=== PATIENT | male | born 1995 | race Caucasian/White ===

== ENCOUNTER 2021-03-17 01:46 | Emergency (ER) | payer OTHER ==
[~2021-03-17] VITALS: Ht 177.8 cm; Wt 88.1 kg
[2021-03-17] MEDS ORDERED: KETOROLAC 30 MG/1 ML ONE (02:04)
[2021-03-17] MEDS ORDERED: MORPHINE SULFATE 4 MG/ML, 1ML ONE ×2 (02:04→03:43)
[2021-03-17] MEDS ORDERED: ONDANSETRON 2MG/ML, 2ML ONE (02:04)
--- NOTE | 2021-03-17 02:24 | NUR ---
pt presents to ed with left lower quad abd pain. pt states he woke up with intense pain. pt says he is also having trouble urinating. pt in gown, on gurney and placed on continuous monitoring. pt was vomitting. pt has 20 g IV placed to left AC, medication given and ivf started.
[2021-03-17] MEDS ORDERED: MORPHINE SULFATE 4 MG/ML, 1ML IVPush PRN (02:30)
[2021-03-17] MEDS ORDERED: ONDANSETRON 2MG/ML, 2ML IVPush ONE (02:30)
[2021-03-17] MEDS ORDERED: KETOROLAC 30 MG/1 ML IVPush ONE (02:30)
--- NOTE | 2021-03-17 02:36 | NUR ---
pt states pain is now a 4, which is down from the 10 he was feeling when he came in. pt resting on gurney, denies needs at this time.
[2021-03-17 02:37] LABS: BASOPHILS % (AUTO) 1 % (0-1); EOSINOPHILS % (AUTO) 1 % (1-7); LYMPHOCYTES % (AUTO) 29 % (22-44); MEAN CORPUSCULAR HEMOGLOBIN 28.5 pg (27.5-34.5); MEAN CORPUSCULAR HGB CONC 34.9 g/dL (33.2-36.2); MEAN PLATELET VOLUME 8.5 fL (7.4-10.4); MONOCYTES % (AUTO) 9 % (2-9); NEUTROPHILS % (AUTO) 61 % (42-75); PLATELET COUNT 203 x10^3/uL (130-400); RED BLOOD COUNT 5.36 x10^6/uL (4.38-5.82); RED CELL DISTRIBUTION WIDTH 13.7 % (9.4-14.8)
[2021-03-17 02:45] LABS: ALANINE AMINOTRANSFERASE 55 U/L (12-78); ALBUMIN 4.1 g/dL (3.4-5.0); ANION GAP 10 mmol/L (5-15); CALCIUM 8.2 mg/dL (8.5-10.1); CHLORIDE 108 mmol/L (98-107); CREATININE 1.26 mg/dL (0.7-1.3)
[2021-03-17 02:48] LABS: ALKALINE PHOSPHATASE 104 U/L (45-117); BILIRUBIN,TOTAL 0.7 mg/dL (0.2-1.0); TOTAL PROTEIN 7.7 g/dL (6.4-8.2)
[2021-03-17 03:01] LABS: MICROSCOPIC INDICATED
--- NOTE | 2021-03-17 03:59 | NUR ---
pt back from ct, pt on phone with airlines to change morning flight. pt denies needs for pain meds at this time, this RN will check on him at a later time about needs for pain medication.
--- NOTE | 2021-03-17 04:21 | NUR ---
pt denies pain at this time, resting on gurney, denies needs at this time.
[2021-03-17 05:06] VITALS: BP 108/63
--- NOTE | 2021-03-17 05:49 | NUR ---
Patient given discharge instructions and they have confirmed that they understand the instructions. Patient ambulatory with steady gait.
== END 2021-03-17 06:01 | disposition home or self-care (01) ==
LOC: ED 03:35
DX: R10.32 Left lower quadrant pain (principal); J45.909 Unspecified asthma, uncomplicated
CPT/HCPCS: 36415; 74176; 80053; 81001; 83690; 85025; 96374; 96375; 99284; J1885; J2270; J2405